=== PATIENT | female | born 1950 | race Caucasian/White ===

== ENCOUNTER 2016-10-13 19:44 | Inpatient (IN) | payer OTHER, MEDICARE ==
[~2016-10-13] VITALS: Ht 162.6 cm; Wt 58.6 kg
[2016-10-13 20:55] VITALS: BP 119/56; PULSE 82; RESP 16; TEMP 98.7; O2SAT 100
--- NOTE | 2016-10-13 22:35 | PD ---
HPI Chief Complaint: Psychiatric Symptoms Time Seen by Provider: 22:30 Travel History International Travel<30 days: No Contact w/Intl Traveler<30days: No Traveled to known affect area: No History of Present Illness HPI 66-year-old female that presents to the ED for evaluation of psych. Patient was Barrios acted by police after apparently she was found in a townhome trying to get into the house with her own keys but apparently that was not her house. Also apparently patient had been talking about seeing her son on someone else. Patient tells me that she has a history of bipolar disorder. Per patient she takes lithium. She also tells me that she's been feeling like she is losing weight secondary to having some parasites on her skin and abdomen. She states that she is also concerned about someone who told her to come here. For the most part history is limited as patient does appear to be somewhat psychotic. She does appear to have flight of ideas. She is able to communicate well but most of her story is nonsensical in this area. She denies any drugs or alcohol. No suicidal or homicidal ideation. History again is somewhat limited. Unclear as to how long the symptoms have been going. Per Barrios act she apparently he is hallucinating and seeing things that are not there which she also told me. PFSH Past Medical History Bipolar Disorder: Yes Social History Alcohol Use: No Tobacco Use: No Substance Use: No Review of Systems ROS Limitations: Psychotic, Poor Historian Except as stated in HPI: all other systems reviewed are Neg Physical Exam Exam Limitations: Poor Historian, Psychotic Narrative GENERAL: SKIN: Warm and dry. HEAD: Atraumatic. Normocephalic. EYES: Pupils equal and round. No scleral icterus. No injection or drainage. ENT: No nasal bleeding or discharge. Mucous membranes pink and moist. Tongue is midline. No uvula deviation. NECK: Trachea midline. No JVD. CARDIOVASCULAR: Regular rate and rhythm. No murmurs, S3, S4. RESPIRATORY: No accessory muscle use. Clear to auscultation. Breath sounds equal bilaterally. GASTROINTESTINAL: Abdomen soft, non-tender, nondistended. Hepatic and splenic margins not palpable. MUSCULOSKELETAL: Extremities without clubbing, cyanosis, or edema. No obvious deformities. NEUROLOGICAL: Awake and alert. No obvious cranial nerve deficits. Motor grossly within normal limits. Five out of 5 muscle strength in the arms and legs. Normal speech. PSYCHIATRIC: Psychotic mood and affect; insight and judgment questionable Data Data Last Documented VS Vital Signs Date Time Temp Pulse Resp B/P Pulse Ox O2 Delivery O2 Flow Rate FiO2 10/13/16 20:55 98.7 82 16 119/56 100 Room Air Orders Complete Blood Count With Diff (10/13/16 21:50) Comprehensive Metabolic Panel (10/13/16 21:50) Urinalysis - C+S If Indicated (10/13/16 21:50) Psych Screen (10/13/16 21:50) Drug Screen, Random Urine (10/13/16 21:50) Alcohol (Ethanol) (10/13/16 21:50) Cora (Li) (10/13/16 22:13) MDM Medical Decision Making Medical Screen Exam Complete: Yes Emergency Medical Condition: Yes Medical Record Reviewed: Yes Differential Diagnosis Depression versus suicidal ideation versus anxiety versus adjustment disorder versus mood disorder versus bipolar disorder versus schizophrenia versus paranoid disorder versus psychosis versus substance abuse versus alcohol abuse versus alcohol induced psychosis versus homicidality addition versus cutting versus personality disorder Narrative Course 66-year-old female that presents to the ED for evaluation of psych. Patient was properly examined and was found to have signs and symptoms consistent what appears to be psychiatric illness. No sign of acute medical distress. History somewhat limited because patient does appear to be somewhat psychotic and likely manic. At this time I recommend labs and lithium level. Patient is agreeable with plan. Patient will be medically clear pending last. Okay to be seen by psych. Mental health screening was discussed with the patient. Diagnosis Primary Impression: Psychosis Qualified Code: F29 - Psychosis, unspecified psychosis type Additional Impression: Bipolar 1 disorder Rogelio Bocanegra Oct 13, 2016 22:35
[2016-10-13 22:58] LABS: BLOOD, URINE NEG (NEG); COMMENT (UR) CULT NOT INDICATED; CULTURE IF INDICATED CULT NOT INDICATED; GLUCOSE,URINE NEG (NEG); HYALINE CAST, URINE 2 /lpf (RARE); KETONE, URINE 80 mg/dL (NEG); MUCUS URINE FEW /lpf (OCC); NITRITE,URINE NEG (NEG); SQUAMOUS EPITHELIAL CELL URINE 6 /hpf (0-5); URINE COLOR YELLOW (YELLW/STRAW)
[2016-10-13 23:01] LABS: AUTOMATED NEUTROPHIL # 8.1 TH/MM3 (1.8-7.7); BASOPHIL # 0.1 TH/MM3 (0-0.2); BASOPHIL % 0.5 % (0.0-2.0); EOSINOPHIL # 0.1 TH/MM3 (0-0.4); EOSINOPHIL % 1.3 % (0.0-4.0); HEMATOCRIT 38.8 % (35.0-46.0); HEMO FLAGS DIFF FINAL; LYMPH % 16.4 % (9.0-44.0); LYMPHOCYTE # 1.8 TH/MM3 (1.0-4.8); MEAN CELL VOLUME 88.4 FL (80.0-100.0); MEAN CORPUSCULAR HEMOGLOBIN 30.4 PG (27.0-34.0); MEAN CORPUSCULAR HGB CONC 34.3 % (32.0-36.0); MONO % 6.9 % (0.0-8.0); NEUT % 74.9 % (16.0-70.0); PLATELET COUNT 320 TH/MM3 (150-450); RED BLOOD COUNT 4.39 MIL/MM3 (4.00-5.30); RED CELL DISTRIBUTION WIDTH 13.6 % (11.6-17.2); WHITE BLOOD COUNT 10.8 TH/MM3 (4.0-11.0)
[2016-10-13 23:03] LABS: AMPHETAMINE, URINE NEG (NEG); BARBITURATES, URINE NEG (NEG); COCAINE, URINE NEG (NEG)
[2016-10-13 23:16] LABS: ALT (GPT) 18 U/L (10-53); ANION GAP 7 MEQ/L (5-15); AST (GOT) 20 U/L (15-37); BICARBONATE 27.6 MEQ/L (21.0-32.0); BLOOD UREA NITROGEN 5 MG/DL (7-18); CHLORIDE 104 MEQ/L (98-107); GLOMERULAR FILTRATION RATE 89 ML/MIN (>89); POTASSIUM 3.4 MEQ/L (3.5-5.1); SODIUM (NA) 139 MEQ/L (136-145)
[2016-10-13 23:19] LABS: ALKALINE PHOSPHATASE 72 U/L (45-117); TOTAL BILIRUBIN ADULT 1.4 MG/DL (0.2-1.0)
[2016-10-14 00:38] VITALS: BP 177/72; PULSE 74; RESP 18; O2SAT 95
[2016-10-14 02:20] VITALS: BP 128/63; PULSE 79; RESP 17; O2SAT 99
[2016-10-14] MEDS ORDERED: LITH300T3 PO (02:42)
[2016-10-14] MEDS ORDERED: LORazepam 1 MG TAB PO PRN (03:45)
[2016-10-14] MEDS ORDERED: ALUMINUM/MAGNESIUM/SIMETH 30 ML CUP PO PRN (03:45)
[2016-10-14] MEDS ORDERED: LORazepam 2 MG/ML VIAL IM PRN (03:45)
[2016-10-14] MEDS ORDERED: ACETAMINOPHEN 325 MG TAB PO PRN (03:45)
[2016-10-14] MEDS ORDERED: traZODone HCL 50 MG TAB PO PRN (03:45)
[2016-10-14] MEDS ORDERED: diphenhydrAMINE HCL 50 MG CAP PO PRN (03:45)
[2016-10-14] MEDS ORDERED: diphenhydrAMINE HCL 50 MG/ML VIAL IM PRN (03:45)
[2016-10-14] MEDS ORDERED: MAGNESIUM HYDROXIDE SUSP 30 ML CUP PO PRN (03:45)
[2016-10-14 04:30] VITALS: BP 185/80; PULSE 86; RESP 18; O2SAT 98
--- NOTE | 2016-10-14 09:38 | HHI.HP ---
Provisional Diagnosis Admission Date Oct 14, 2016 at 03:24 [place] I. Bipolar disorder, manic. Certification of Person's Competence To Provide Express and Informed Consent I have personally examined Chelo Spear , a person being served at [facility] on, Oct 14, 2016 09:33. Express and informed consent means consent voluntarily given in writing, by a competent person, after sufficient explanation and disclosure of the subject matter involved to enable the person to make a knowing and willful decision without any element of force, fraud, deceit, duress, or other form of constraint or coercion. This person is 18 years of age or older, is not now known to be incompetent to consent to treatment with a guardian advocate, and does not have a health care surrogate or proxy currently making medical treatment decisions. I have found this person to be one of the following: [x] Competent to provide express and informed consent, as defined above, for voluntary admission to this facility and is competent to provide express and informed consent for treatment. He/she has the consistent capacity to make well reasoned, willful, and knowing decisions concerning his or her medical or mental health treatment. The person fully and consistently understands the purpose of the admission for examination/placement and is fully capable of personally exercising all rights assured [place] Incompetent to provide express and informed consent to voluntary admission, and this is incompetent to provide express and informed consent to treatment. The person must be transferred to involuntary status and a petition for a guardian advocate filed with the Circuit Court. [] Refusing to provide express and informed consent to voluntary admission but is competent to provide express and informed consent for treatment. The person must be discharged or transferred to involuntary status. Form shall be completed within 24 hours of a person's arrival at the receiving facility and filed in the clinical record of each person: 1. Admitted on a voluntary basis 2. Permitted to provide express and informed consent to his/her own treatment 3. Allowed to transfer from involuntary to voluntary status 4. Prior to permitting a person to consent to his or her own treatment after having been previously found incompetent to consent to treatment. History of Present Illness Capacity: Has Capacity HPI This is a 66-year-old female who presents under a Barrios act for attempting to break into people's houses. She has a long multiyear history of bipolar disorder and takes lithium which is prescribed by some physician Ray Gupta. The patient is a very poor historian and is unable to provide any cogent information except that she lives with HER-2 sons. She demonstrates significant looseness of association, flight of ideas, tangentiality, delusional thinking, poor insight, impaired judgment, rapid and sometimes pressured speech, as well as impulsive behavior. She has no understanding of why she is in the hospital. She is unable to follow or express a line of linear thinking. She denies any history of alcohol or drug abuse. She is known to take lithium and her lithium level was reviewed in [id number] 0.5. Review of Systems ROS Limitations: Clinical Condition Except as stated in HPI: all other systems reviewed are Neg Past Psych History Psychological trauma history Denied Violence risk - others (6 mos) Minimal Violence risk - self (6 mos) Moderate Substance Abuse History Drugs/Alcohol past 12 months Denied Past Family Social History Coded Allergies: No Known Allergies (Unverified , 10/13/16) Reported Medications [place] Carbonate 300 Mg [id number] Mg PO BID NEB Ref 0 10/14/16 Current Medications Medications (Trade) Dose Ordered Sig/Deejay Route Start Time Stop Time Status Last Admin (Ativan) 1 mg Q6H PRN PO 10/14/16 03:45 (Ativan Inj) 1 mg Q6H PRN IM 10/14/16 03:45 (Benadryl) 50 mg Q6H PRN PO 10/14/16 03:45 (Benadryl Inj) 50 mg Q6H PRN IM 10/14/16 03:45 (Desyrel) 50 mg HS PRN PO 10/14/16 03:45 (Tylenol) 650 mg Q4H PRN PO 10/14/16 03:45 (Milk Of Magnesia Liq) 30 ml DAILY PRN PO 10/14/16 03:45 (Mag-Al Plus Susp Liq) 30 ml Q6H PRN PO 10/14/16 03:45 Family History Positive for mood disorders Social History Lives with HER-2 sons in [place] and denies a problem with alcohol or drugs. Otherwise she is unable to give a cogent history. Patient's Strengths (min. 2) Verbal and resilient. Physical Exam GENERAL: SKIN: Warm and dry. HEAD: Normocephalic. EYES: No scleral icterus. No injection or drainage. NECK: Supple, trachea midline. No JVD or lymphadenopathy. CARDIOVASCULAR: Regular rate and rhythm without murmurs, gallops, or rubs. RESPIRATORY: Breath sounds equal bilaterally. No accessory muscle use. GASTROINTESTINAL: Abdomen soft, non-tender, nondistended. MUSCULOSKELETAL: No cyanosis, or edema. BACK: Nontender without obvious deformity. No CVA tenderness. Vital Signs Vital Signs Date Time Temp Pulse Resp B/P Pulse Ox O2 Delivery O2 Flow Rate FiO2 10/14/16 04:30 86 18 185/80 98 10/14/16 02:20 Room Air 10/13/16 20:55 98.7 Mental Status Examination Speech: Pressured, Rapid Orientation: x3 Memory: Unremarkable Thought Process: Circumstantial, Flight of Ideas, Loose Association Thought Content: Bizarre thinking Hallucination Type: None Attention and Concentration: Easily Distracted Suicidal Ideation: No Previous Suicide Attempts: No Homicidal Ideation: No Previous Homicide Attempts: No Insight: Poor Judgement: Impulsive Affect: Anxious Affect if Inappropriate: Labile Mood: Manic Motor Activity: Normal gait Assessment & Plan Problem List: (1) Bipolar disorder, manic, moderate ICD Code: F31.12 Assessment & Plan Estimated LOS: 5 days this physician feels the patient's medications or not adequately titrated to stabilize her bipolar disorder. She is in a manic state. Her lithium likely needs to be increased and this physician wants to start her on a second mood stabilizer. Best Edmonds MD Oct 14, 2016 09:38
[2016-10-14 17:54] VITALS: BP 86/53; PULSE 80; RESP 18; TEMP 98.6; O2SAT 99
[2016-10-14] MEDS: LITHIUM CARBONATE 450 MG CONTROLLED RELEASE TAB PO SCH (18:24)
[2016-10-14] MEDS ORDERED: ARIPiprazole 2 MG TAB PO SCH (21:00)
[2016-10-14 21:52] VITALS: BP 110/52; PULSE 62; RESP 18
[2016-10-15 05:55] VITALS: BP 104/55; PULSE 58; RESP 18; TEMP 98.1; O2SAT 100
[2016-10-15] MEDS: LITHIUM CARBONATE 450 MG CONTROLLED RELEASE TAB PO SCH ×2 (09:08→17:59)
--- NOTE | 2016-10-15 12:41 | HHI.PYPN ---
Subjective Remarks Patient continues to show rapid and sometimes pressured speech. She continues to have an elevated mood. She continues to demonstrate loose associations and flight of ideas. At times she is grandiose. Although this physician started her back on 900 mg of lithium per day, the medicine has not begun to work and the mood stabilizing medicine has not shown much difference. This physician is waiting for the medicines to take hold. Review of Systems ROS Limitations: Clinical Condition Objective Alert: Yes [place]: Person, Place, Date Mood: Calm Affect: Labile, Manic Memory Intact: Immediate, Recent, Remote Hallucinations: Other Delusions: Yes Delusion Type: Other Suicidal: Ideation Homicidal: Ideation Insight/Judgement Impaired.but willing to get on meds. Labs Test 10/15/16 06:42 Thyroid Stimulating Hormone 0.224 uIU/ML 3rd Gen Vitals/IOs Vital Signs Date Time Temp Pulse Resp B/P Pulse Ox O2 Delivery O2 Flow Rate FiO2 10/15/16 05:55 98.1 58 18 104/55 100 10/14/16 02:20 Room Air Assessment & Plan Problem List: (1) Bipolar disorder, manic, moderate ICD Code: F31.12 Assessment & Plan Estimated LOS: 2 days patient continues to demonstrate symptoms of steven and this physician will continue to titrate the Abilify to work with the lithium. Justification for Cont. Inpt. Patient remains manic and unable to care for herself. Best Edmonds MD Oct 15, 2016 12:41
[2016-10-15 16:53] VITALS: BP 114/53; PULSE 70; RESP 20; TEMP 97.6; O2SAT 97
[2016-10-15] MEDS ORDERED: ARIPiprazole 5 MG TAB PO SCH (21:00)
[2016-10-16 05:27] VITALS: BP 112/60; PULSE 58; RESP 16; TEMP 97.6; O2SAT 97
[2016-10-16] MEDS: LITHIUM CARBONATE 450 MG CONTROLLED RELEASE TAB PO SCH (08:43)
[2016-10-16] MEDS ORDERED: TRAZ50TA12 PO (09:21)
[2016-10-16] MEDS ORDERED: LITH450T PO (09:21)
[2016-10-16] MEDS ORDERED: ARIP1TAB11 PO (09:21)
--- NOTE | 2016-10-16 11:06 | HHI.DS ---
Psychiatry Discharge Summary Inpatient Psychiatric care?: Yes Advance Directive: No Reason Not Provided: none Mental Health AdvanceDirective: No Health Care Proxy: No Admission Admission Date Oct 14, 2016 at 03:24 Admission Diagnosis: (1) Bipolar disorder, manic, moderate ICD Code: F31.12 Brief History This is a 66-year-old female who presents under a Barrios act for attempting to break into people's houses. She has a long multiyear history of bipolar disorder and takes lithium which is prescribed by some physician Ray Gupta. The patient is a very poor historian and is unable to provide any cogent information except that she lives with HER-2 sons. She demonstrates significant looseness of association, flight of ideas, tangentiality, delusional thinking, poor insight, impaired judgment, rapid and sometimes pressured speech, as well as impulsive behavior. She has no understanding of why she is in the hospital. She is unable to follow or express a line of linear thinking. She denies any history of alcohol or drug abuse. She is known to take lithium and her lithium level was reviewed in [id number] 0.5. Tobacco Use In Past 30 Days: No Tobacco Past 30 Days Alcohol Use: Never Hospital Course Patient demonstrated symptoms of hypomania during most of this hospitalization. However, she also demonstrated increased organization of thoughts and speech. At the time of discharge she was started on mood stabilizing medication and tolerating it well. No procedures were performed. She did not meet criteria for Barrios act or need inpatient hospitalization at this point. Results Blood Pressure 112 / 60 Vital Signs Date Time Temp Pulse Resp B/P Pulse Ox O2 Delivery O2 Flow Rate FiO2 10/16/16 05:27 97.6 58 16 112/60 97 10/14/16 02:20 Room Air Laboratory Tests Test 10/13/16 10/15/16 22:25 06:42 Neutrophils (%) (Auto) 74.9 % (16.0-70.0) Neutrophils # (Auto) 8.1 TH/MM3 (1.8-7.7) Urine Ketones 80 mg/dL (NEG) Urine Leukocyte Esterase SMALL (NEG) Urine WBC 6 /hpf (0-5) Urine Mucus FEW /lpf (OCC) Potassium Level 3.4 MEQ/L (3.5-5.1) Blood Urea Nitrogen 5 MG/DL (7-18) Total Bilirubin 1.4 MG/DL (0.2-1.0) Thyroid Stimulating Hormone 0.224 uIU/ML 3rd Gen (0.358-3.740) Laboratory Results Test 10/13/16 22:25 [place] Level 0.5 MEQ/L (0.5-1.5) Summary of Procedures None Pending results at discharge: No Medications # of Antipsychotic meds at D/C: 1 Appropriate >1 Antipsych meds?: 1 Approp Antipsych med options 1 - Minimum of three failed multiple trials of monotherapy. 2 - Documented plan to taper to monotherapy due to previous use of multiple meds OR cross-taper in progress at D/C. 3 - Documentation of augmentation of Clozapine. 4 - Justification other than those listed in allowable values 1-3, document here : Discharge Discharge Date: Oct 16, 2016 Discharge Diagnosis: (1) Bipolar disorder, manic, moderate Diagnosis: Principal ICD Code: F31.12 Mental Status Exam at Disch At the time of discharge the patient continues to have a mildly to moderately elevated mood. She did not demonstrate symptoms of psychosis. Her speech was rapid but not pressured. She exhibited some tangentiality and circumstantiality but was able to regroup upon question and demonstrate logical and linear thinking. No suicidal or homicidal ideation and no psychosis. Cognition was intact. Pt Condition on Discharge: Stable Discharge Disposition: Discharge Home Discharge Instructions Diet Instructions: As Tolerated, No Restrictions Activities you can perform: Regular-No Restrictions Scheduled Appointment: [facility] Appointment Date: Oct 21, 2016 Appointment Time: 1:20pm Discharge Time <= 30 minutes Discharge/Advance Care Plan Health Problems: (1) Bipolar disorder, manic, moderate Goals to promote your health * To prevent worsening of your condition and complications * To maintain your health at the optimal level Directions to meet your goals Take your medications as prescribed Follow your dietary instruction Follow activity as directed Keep your appointments as scheduled Take your immunizations and boosters as scheduled If your symptoms worsen call your PCP, if no PCP go to Urgent Care Center or Emergency Room For 09/02 questions related to your inpatient stay or results of tests pending at discharge, please contact Dr. Best Edmonds at Smoking is Dangerous to Your Health. Avoid second hand smoking Best Edmonds MD Oct 16, 2016 11:06
== END 2016-10-16 12:00 | disposition home or self-care (01) | DRG 885 ==
LOC: NEDAMB 19:44 → NEDA 10-14 03:24 → H260 10-14 04:30
PROVIDERS: ADMIT Psychiatry & Neurology Psychiatry; ATTEND Psychiatry & Neurology Psychiatry
DX: F31.9 Bipolar disorder, unspecified (principal); F22 Delusional disorders
CPT/HCPCS: 80053; 80178; 80307; 81001; 84443; 85025; 99285